=== PATIENT | female | born 1965 | race Caucasian/White ===

== ENCOUNTER → 2018-12-24 | Outpatient (CLI) | payer MEDICARE, MEDICAID ==
[~2018-12-24] MED LIST: HOLD METFORMIN - RECEIVED CONTRAST 20 ML VIAL IV SCH; IOHEXOL 350 MG/ML 150 ML (OMNIPAQUE 350) VIAL IV ONE
[2018-12-24 11:22] LABS: BUN/CREATININE RATIO 16; GFR ESTIMATED > 60
[2018-12-24 12:13] LABS: ABG BASE EXCESS 5.7 MMOL/L (-2.5-2.5); ABG OXYGEN SATURATION 97 % (94-100); ABG PCO2 52 MMHG (35-45); ABG PH 7.38 (7.37-7.43); ABG PO2 83 MMHG (79-93); ABG TCO2 32.5 MMOL/L (21.0-31.0)
--- NOTE | 2018-12-24 12:13 | Diagnostic Imaging Report ---
PROCEDURE: CT angiography of the chest with contrast. TECHNIQUE: Multiple contiguous axial images were obtained through the chest after uneventful bolus administration of intravenous contrast. 2D reconstructed CTA MIP acquisitions were also performed. Auto Exposure Controls were utilized during the CT exam to meet ALARA standards for radiation dose reduction. INDICATION: Cough and shortness of air with left-sided chest pain. COMPARISON: No prior studies are available for comparison. FINDINGS: Evaluation of the pulmonary arterial system is without evidence of thromboembolism. No definite filling defects are seen within the central or lobar branches. Thoracic aorta is normal caliber. No dissection is seen. There is no pericardial or pleural fluid identified. Left chest wall port is in place. No definite axillary, hilar or mediastinal lymphadenopathy is seen. No pulmonary infiltrates, nodules or masses are seen. Generalized low density throughout the liver is identified consistent with hepatic steatosis. IMPRESSION: 1. No evidence of pulmonary embolism or thoracic aortic dissection. 2. Hepatic steatosis. Dictated by: Dictated on workstation # [id number]
[2018-12-24 12:15] LABS: ALLENS TEST YES-POS; INSPIRED O2 2; PATIENT TEMP 96.4; VENTILATOR NO
== END ==
LOC: RT 10:38
PROVIDERS: ATTEND Nurse Practitioner Family
DX: R05 Cough (principal); R06.89 Other abnormalities of breathing; R06.00 Dyspnea, unspecified; J98.4 Other disorders of lung; R09.02 Hypoxemia; J30.9 Allergic rhinitis, unspecified; F41.9 Anxiety disorder, unspecified; G47.36 Sleep related hypoventilation in conditions classified elsewhere; G47.33 Obstructive sleep apnea (adult) (pediatric); M32.9 Systemic lupus erythematosus, unspecified
CPT/HCPCS: 36415; 36600; 71275; 82565; 82805; 84520

== ENCOUNTER → 2019-02-22 | Outpatient (CLI) | payer MEDICARE, MEDICAID ==
[~2019-02-22] MED LIST changes: -HOLD METFORMIN - RECEIVED CONTRAST 20 ML VIAL IV SCH; -IOHEXOL 350 MG/ML 150 ML (OMNIPAQUE 350) VIAL IV ONE; +RT-ALBUTEROL SULF 2.5 MG/3 ML PRE-MIX VIAL INH ONE
== END ==
LOC: RAD 14:14
PROVIDERS: ATTEND Nurse Practitioner Family
DX: J30.9 Allergic rhinitis, unspecified (principal); F41.9 Anxiety disorder, unspecified; J98.4 Other disorders of lung; G47.36 Sleep related hypoventilation in conditions classified elsewhere; M32.9 Systemic lupus erythematosus, unspecified; G47.33 Obstructive sleep apnea (adult) (pediatric)
CPT/HCPCS: 94060; 94726

== ENCOUNTER 2022-03-09 05:35 | Outpatient (CLI) | payer MEDICARE, MEDICAID ==
[~2022-03-09] VITALS: Ht 167.7 cm; Wt 97.7 kg
[2022-03-09 09:18] LABS: BILIRUBIN,URINE NEGATIVE (NEGATIVE); CLARITY,URINE CLEAR; COLOR,URINE YELLOW; GLUCOSE, URINE (UA) NEGATIVE (NEGATIVE); KETONES,URINE NEGATIVE (NEGATIVE); LEUKOCYTE ESTERASE ,URINE NEGATIVE (NEGATIVE); NITRITE,URINE NEGATIVE (NEGATIVE); PH,URINE 6.5 (5-9); PROTEIN,URINE NEGATIVE (NEGATIVE)
[2022-03-09 09:33] LABS: BACTERIA,URINE NEGATIVE /HPF; SQUAMOUS EPITHELIAL CELL,UR 0-2 /HPF; WBC,URINE RARE /HPF
[2022-03-09 09:37] VITALS: BP 127/79
[2022-03-09 09:53] LABS: BASOPHILS # (AUTO) 0.1 10^3/uL (0.0-0.1); BASOPHILS % (AUTO) 1 % (0-10); EOSINOPHILS # (AUTO) 0.4 10^3/uL (0.0-0.3); EOSINOPHILS % (AUTO) 3 % (0-10); HEMATOCRIT 42 % (35-52); HEMOGLOBIN 14.1 g/dL (11.5-16.0); LYMPHOCYTES % (AUTO) 37 % (12-44); MEAN CORPUSCULAR HEMOGLOBIN 30 pg (25-34); MEAN CORPUSCULAR HGB CONC 34 g/dL (32-36); MEAN CORPUSCULAR VOLUME 91 fL (80-99); MEAN PLATELET VOLUME 10.7 fL (9.0-12.2); MONOCYTES # (AUTO) 0.8 10^3/uL (0.0-1.0); MONOCYTES % (AUTO) 7 % (0-12); NEUTROPHILS # (AUTO) 5.5 10^3/uL (1.8-7.8); NEUTROPHILS % (AUTO) 52 % (42-75); PLATELET COUNT 303 10^3/uL (130-400); WHITE BLOOD COUNT 10.7 10^3/uL (4.3-11.0)
--- NOTE | 2022-03-09 10:02 | Diagnostic Imaging Report ---
Indication: Knee arthroplasty, preop evaluation. Findings: The lungs are clear. There is no failure, effusion or pneumothorax. Impression: Normal 2 view chest. Dictated by: Dictated on workstation # [id number]
[2022-03-09 10:14] LABS: POTASSIUM 4.4 MMOL/L (3.6-5.0)
[2022-03-09 10:16] LABS: CALCIUM 9.1 MG/DL (8.5-10.1)
[2022-03-09 10:17] LABS: PROTHROMBIN TIME PATIENT 13.7 SEC (12.2-14.7); TOTAL PROTEIN 7.4 GM/DL (6.4-8.2)
[2022-03-09 10:18] LABS: BILIRUBIN,TOTAL 0.5 MG/DL (0.1-1.0)
[2022-03-09 10:20] LABS: CREATININE SERUM 0.79 MG/DL (0.60-1.30)
[2022-03-09 10:23] LABS: ERYTHROCYTE SEDIMENTATION RATE 42 MM/HR (0-30)
[2022-03-09] MEDS ORDERED: NITR0.4T42 SL (10:59)
[2022-03-09] MEDS ORDERED: CHOL200074 PO (10:59)
[2022-03-09] MEDS ORDERED: BIOT10005 PO (10:59)
[2022-03-09] MEDS ORDERED: ESTR0.5T PO (10:59)
[2022-03-09] MEDS ORDERED: DOCU100T2 PO (10:59)
[2022-03-09] MEDS ORDERED: MONT-40 PO (10:59)
[2022-03-09] MEDS ORDERED: DULA0.75 SQ (10:59)
[2022-03-09] MEDS ORDERED: METF-865 PO (10:59)
[2022-03-09] MEDS ORDERED: DEXL60CA PO (10:59)
[2022-03-09] MEDS ORDERED: AMIT25TA9 PO (10:59)
[2022-03-09] MEDS ORDERED: MAGN400T50 PO (10:59)
[2022-03-09] MEDS ORDERED: ZOLP10TA PO (10:59)
[2022-03-09] MEDS ORDERED: CIME200T90 PO (10:59)
[2022-03-09] MEDS ORDERED: ATOR40TA70 PO (10:59)
[2022-03-09] MEDS ORDERED: CICL6.6S18 TP (10:59)
[2022-03-09] MEDS ORDERED: FERR-84 PO (10:59)
[2022-03-09] MEDS ORDERED: CARV12.53 PO (10:59)
[2022-03-09] MEDS ORDERED: DICL100G13 TP (10:59)
[2022-03-09] MEDS ORDERED: PREG25CA19 PO (10:59)
[2022-03-09] MEDS ORDERED: CETI10TA17 PO (10:59)
[2022-03-09] MEDS ORDERED: ONDA4TAB11 PO (10:59)
[2022-03-09] MEDS ORDERED: SPIR25TA PO (10:59)
[2022-03-09] MEDS ORDERED: MULT1CAP54 PO (10:59)
[2022-03-09] MEDS ORDERED: VILA40TA PO (10:59)
[2022-03-09] MEDS ORDERED: FENT1PAT9 TD (10:59)
[2022-03-09] MEDS ORDERED: LAMO100T5 PO (10:59)
[2022-03-09] MEDS ORDERED: ASPI-808 PO (10:59)
[2022-03-09] MEDS ORDERED: LORA-404 PO (10:59)
[2022-03-09] MEDS ORDERED: TIZA4CAP8 PO (10:59)
[2022-03-09] MEDS ORDERED: CALC600T91 PO (10:59)
[2022-03-09] MEDS ORDERED: LEVO150C4 PO (10:59)
[2022-03-09] MEDS ORDERED: MULT-1054 PO (10:59)
[2022-03-09] MEDS ORDERED: FLUT9.9S NS (10:59)
== END 2022-03-09 11:00 ==
LOC: PREOP 05:35
PROVIDERS: ATTEND Orthopaedic Surgery
DX: Z01.811 Encounter for preprocedural respiratory examination (principal)
CPT/HCPCS: 36415; 71046; 80053; 81000; 82308; 85025; 85610; 85652; 86850; 86900; 86901; 87081; 93005

== ENCOUNTER 2022-03-16 05:51 | Inpatient (IN) | payer MEDICARE, MEDICAID ==
--- NOTE | 2022-03-08 19:42 | HISTORY AND PHYSICAL ---
DATE OF SERVICE: DATE OF ADMISSION: 03/16/2022. This will be for inpatient admission on 03/16/2022 for right total knee arthroplasty. The patient will require regular inpatient admission due to pain management, need for physical therapy and comorbidities. HISTORY OF PRESENT ILLNESS: The patient is a 56-year-old female who previously underwent a right knee ACL reconstruction. She reports off and on pain for the last several years, but over the last few months, the pain has become significant to the point where she is having interference with activities of daily living with increased mechanical symptoms and associated swelling. She has undergone treatment with injections, anti-inflammatories and rest. As she has become more active, the pain is actually increased. Radiographs revealed severe tricompartmental osteoarthritis with the previously placed ACL screws. REVIEW OF SYSTEMS: No recent chest pain, shortness of breath, no dysuria. PAST MEDICAL HISTORY: Lupus, fibromyalgia, migraines, bipolar disorder, anxiety disorder, depression, COPD, diabetes, hyperlipidemia, hypertension, hypothyroidism, sleep apnea. PAST SURGICAL HISTORY: Cholecystectomy, abdominal hysterectomy with tubal ligation, bilateral knee arthroscopies, bottom tooth extraction, colonoscopy, EGD, ACL reconstruction bilaterally, left total knee arthroplasty and Baron-en-Y gastric bypass. FAMILY HISTORY: Noncontributory. PRIMARY CARE PROVIDER: Caron Cam. MEDICATIONS: Zolpidem, Viibryd, Ventolin, tizanidine, spironolactone, Lyrica, ondansetron, nitroglycerin, metformin, magnesium, loperamide, lorazepam, levothyroxine, fentanyl patches, estradiol, Dexilant, cimetidine, vitamin D, carvedilol, biotin, atorvastatin and aspirin. ALLERGIES: SULFA, CODEINE, AND PREDNISONE. SOCIAL HISTORY: The patient drinks alcohol occasionally. Denies tobacco use. PHYSICAL EXAMINATION: GENERAL: The patient is a well-developed, well-nourished, in no acute distress. HEENT: Normocephalic, atraumatic. Pupils are equal, round and reactive to light. Oropharynx is clear. NECK: Supple, no lymphadenopathy. LUNGS: Clear to auscultation bilaterally. HEART: Regular rate and rhythm. ABDOMEN: Soft, nontender, nondistended. EXTREMITIES: The right knee demonstrates well healed incisions. There is no erythema or warmth. She has moderate effusion. Range of motion 0/5/110. No varus valgus laxity. Trace anterior drawer, negative posterior drawer. IMPRESSION: Severe right knee osteoarthritis, unresponsive to conservative measures. PLAN: Right total knee arthroplasty. The risks, benefits, options, ramifications and recovery have been discussed at length with the patient. She understands and wishes to proceed. Job ID: [id number] DocumentID: [id number] Dictated Date: 02/28/2022 16:50:22 Contracting Analyst Date: 02/28/2022 17:16:14 Dictated By: RACHAEL GUADARRAMA MD
[2022-03-16] VITALS (10 sets, daily range): BP systolic 90–129; BP diastolic 45–70
[~2022-03-16] VITALS: Ht 167.7 cm; Wt 97.7 kg
[~2022-03-16 05:51] MED LIST changes: +AMIT25TA9 PO; +ASPI-808 PO; +ATOR40TA70 PO; +BIOT10005 PO; +CALC600T91 PO; +CARV12.53 PO; +CETI10TA17 PO; +CHOL200074 PO; +CICL6.6S18 TP; +CIME200T90 PO; +DEXL60CA PO; +DICL100G13 TP; +DOCU100T2 PO; +DULA0.75 SQ; +ESTR0.5T PO; +FENT1PAT9 TD; +FERR-84 PO; +FLUT9.9S NS; +LAMO100T5 PO; +LEVO150C4 PO; +LORA-404 PO; +MAGN400T50 PO; +METF-865 PO; +MONT-40 PO; +MULT-1054 PO; +MULT1CAP54 PO; +NITR0.4T42 SL; +ONDA4TAB11 PO; +PREG25CA19 PO; -RT-ALBUTEROL SULF 2.5 MG/3 ML PRE-MIX VIAL INH ONE; +SPIR25TA PO; +TIZA4CAP8 PO; +VILA40TA PO; +ZOLP10TA PO
[2022-03-16] MEDS: LACTATED RINGERS 1,000 ML IV PRN ×3 (06:45→10:19)
[2022-03-16] MEDS ORDERED: CEFUROXIME 1.5 GM/15 ML (ZINACEF) VIAL ONE (06:48)
[2022-03-16] MEDS ORDERED: CEFUROXIME INJECTION 1,500 MG in NS (IVPB) 50 ML IV ONE (07:00)
[2022-03-16] MEDS ORDERED: LIDOCAINE PF 2% 5 ML (XYLOCAINE) VIAL ONE (07:01)
[2022-03-16] MEDS ORDERED: proPOfol 200 MG/20 ML (DIPRIVAN) VIAL IV ONE (07:01)
[2022-03-16] MEDS ORDERED: fentaNYL INJ 100 MCG/2 ML AMP ONE (07:01)
[2022-03-16] MEDS ORDERED: ONDANSETRON 4 MG/2 ML (SDV) Z0FRAN ONE (07:01)
[2022-03-16] MEDS ORDERED: GLYCOPYRROLATE 0.2 MG/ML (ROBINUL) 2 ML VIAL ONE (07:01)
[2022-03-16] MEDS ORDERED: MIDAZOLAM 2 MG/2 ML (VERSED) VIAL ONE (07:02)
[2022-03-16] MEDS ORDERED: ROCURONIUM 50 MG/5 ML (ZEMURON) VIAL IV ONE ×2 (07:02→08:45)
[2022-03-16] MEDS ORDERED: NEOSTIGMINE (BLOXIVERZ ) 1 MG/1ML 10 ML VIAL ONE (07:02)
[2022-03-16] MEDS ORDERED: diphenhydrAMINE 50 MG/ML INJ (BENADRYL) IVP PRN (07:30)
[2022-03-16] MEDS ORDERED: ONDANSETRON 4 MG/2 ML (SDV) Z0FRAN IVP PRN ×2 (07:30→11:00)
--- NOTE | 2022-03-16 07:31 | Progress Note-Pre Operative ---
Pre-Operative Progress Note H&P Reviewed The H&P was reviewed, patient examined and no changes noted. Date Seen by Provider: Mar 16, 2022 Time Seen by Provider: 07:20 Date H&P Reviewed: Mar 16, 2022 Time H&P Reviewed: 07:11 Pre-Operative Diagnosis: right knee primary osteoarthritis RACHAEL GUADARRAMA MD Mar 16, 2022 07:31
--- NOTE | 2022-03-16 07:31 | Progress Note-Post Operative ---
Post-Operative Progess Note Surgeon (s)/Sailing Officer (s) Surgeon RACHAEL GUADARRAMA MD Sailing Officer: Jose Angel Mooney Pre-Operative Diagnosis right knee primary osteoarthritis Post-Operative Diagnosis right knee primary osteoarthritis Procedure & Operative Findings Date of Procedure 03/16/22 Procedure Performed/Findings right total knee arthroplasty Anesthesia Type GETA Estimated Blood Loss Estimated blood loss (mL): 400 ml Specimens/Packing Specimens Removed ACL screws Packing: none RACHAEL GUADARRAMA MD Mar 16, 2022 07:31
--- NOTE | 2022-03-16 07:34 | D/C HH Face to Face Order ---
D/C Face to Face Orders Reconcile Patient Problems Problems Reviewed?: Yes Instructions for Patient Via [facility], Patient Instructions/FollowUp: three weeks Physician to follow Patient: three weeks Discharge Diet for Home: Regular Diet Patient Data-Allergies,Ht & Wt Patient Allergies: Coded Allergies: Sulfa (Sulfonamide Antibiotics) (Verified Allergy, Severe, Anaphylaxis, 03/16/22) codeine (Verified Allergy, Severe, Hives, 03/16/22) prednisone (Verified Allergy, Severe, 03/16/22) Home Health Need/Face to Face Date of Face to Face: Mar 16, 2022 Clinical Findings: Muscle weakness, Pain with ambulation, Unsteady gait I have seen Pt ozhb-[id number]: Yes Discharged To: Home Diagnosis/Conditions: right total knee arthroplasty Patient is Homebound due to: Muscle weakness, Pain w/ambulation Homebound Status Due to the above stated illness, injury or surgical procedure (medical c ondition or diagnosis) and associated clinical findings, the patient is homebound because of his/her inability to leave home except with aid of a supportive device and/or person AND leaving the home requires a considerable and taxing effort or is medically contraindicated. Pt req the following assistanc: [facility] Nursing Orders Home Health Services Order: Physical Therapy-Evaluate & Treat DC right knee nicolle and apply steristrips 03/30/22 Home Health Infusion Therapy Line Start Date: Mar 16, 2022 Therapy Orders Therapy Orders: Physical Therapy, PT to assess for OT Therapy Specific Orders: Eval assistive deivces, Teach enviro modifications/safety, Gait training, Increase strength/endurance, Provider maintenance therapy, Restore ROM Certify Stmt I certify that this patient is under my care and that I, a nurse practitioner or a physician; a data assistant working with me, had a face to face encounter that - meets the physician face to face encounter requirements with this patient as dated. RACHAEL GUADARRAMA MD Mar 16, 2022 07:34
[2022-03-16] MEDS ORDERED: TRANEXAMIC ACID 100 MG/ML 10 ML INJECTION ONE (07:39)
[2022-03-16] MEDS ORDERED: PHENYLEPHRINE 100 MCG/ML 10 ML (ANESTHESIA) SYR ONE ×2 (07:41→09:16)
[2022-03-16] MEDS ORDERED: INTRA-ARTICULAR IU ONE ×5 (07:45)
[2022-03-16] MEDS ORDERED: HYDROmorphone 2 MG/ML VIAL (DILAUDID) ONE ×2 (08:23→11:13)
[2022-03-16] MEDS ORDERED: PHENYLEPHRINE INJ 10 MG/ML (FOR PYXIS KITS ONLY) ONE (09:29)
[2022-03-16] MEDS ORDERED: SEVOFLURANE (ULTANE) 15 ML INHAL SOLN ONE (10:41)
[2022-03-16] MEDS ORDERED: HYDROmorphone 2 MG/ML VIAL (DILAUDID) IV ONE (11:00)
[2022-03-16] MEDS ORDERED: morphine INJ 10 MG/ML 1ML (SYR OR VIAL) IVP ONE (11:00)
--- NOTE | 2022-03-16 11:10 | Progress Note ---
Standard Progress Note Progress Notes/Assess & Plan Date Seen by a Provider: Mar 16, 2022 Time Seen by a Provider: 11:08 Progress/Assessment & Plan post op check no complaints radiographs--HW well positioned without fracture RLE--intact DF and PF of toes and ankle. Intact sensation to light touch throughout 2 plus DP pulse with brisk cap refill s/p RTKA mobilize when able RACHAEL GUADARRAMA MD Mar 16, 2022 11:10
--- NOTE | 2022-03-16 11:20 | Diagnostic Imaging Report ---
Indication: Right knee surgery. Time of Exam: 10:50 AM 2 views right knee were obtained. There are postoperative changes total knee arthroplasty. Prosthetic elements are in good position without fracture loosening. There are overlying skin nicolle. IMPRESSION: Satisfactory postop right knee. Dictated by: Dictated on workstation # [id number]
[2022-03-16] MEDS: SENNA W/DOCUSATE (SENOKOT S) TABLET PO SCH ×2 (12:16→20:28)
[2022-03-16] MEDS: NS IV 1000 ML 1,000 ML IV SCH ×2 (12:16→15:11)
[2022-03-16] MEDS: morphine PCA 100 MG/100 ML BAG IV PRN ×2 (12:27→12:50)
[2022-03-16] MEDS: oxyCODONE/APAP 5/325MG (PERCOCET 5) TABLET PO PRN ×4 (13:00→22:53)
--- NOTE | 2022-03-16 13:56 | Physical Therapy Evaluation ---
PT Evaluation-General Medical Diagnosis Admission Date Mar 16, 2022 at 05:51 Medical Diagnosis: right TKA Onset Date: Mar 16, 2022 Therapy Diagnosis Therapy Diagnosis: impaired mobility, ROM Weight Bear Status Right Lower Extremity: Right Weight Bearing/Tolerated Referral Physician: Vinicio Reason for Referral: Evaluation/Treatment Medical History Additional Medical History PAST MEDICAL HISTORY: Lupus, fibromyalgia, migraines, bipolar disorder, anxiety disorder, depression, COPD, diabetes, hyperlipidemia, hypertension, hypothyroidism, sleep apnea. PAST SURGICAL HISTORY: Cholecystectomy, abdominal hysterectomy with tubal ligation, bilateral knee arthroscopies, bottom tooth extraction, colonoscopy, EGD, ACL reconstruction bilaterally, left total knee arthroplasty and Baron-en-Y gastric bypass. Reviewed History: Yes Social History Current Living Status: Other Family Entry Into Home: Stairs With Railing PT Steps Into Home: 4 Prior Prior Level of Function SCALE: Activities may be completed with or without assistive devices. 7-Bpjzmwfwmq-eyorrbl completes the activity by him/herself with no assistance from a helper. 5-Set-up or Clean-up Assistance-helper sets up or cleans up; patient completes activity. [place] assists only prior to or following the activity. 4-Supervision or Touching Assistance-helper provides verbal cues and/or touching/steadying and/or contact guard assistance as patient completes activity. Assistance may be provided throughout the activity or intermittently. 3-Partial/Moderate Assistance-helper does LESS THAN HALF the effort. [place] lifts, holds or supports trunk or limbs, but provides less than half the effort. 2-Substantial/Maximal Assistance-helper does MORE THAN HALF the effort. [place] lifts or holds trunk or limbs and provides more than half the effort. 0-Xrlmrvldq-iwecxq does ALL the effort. Patient does none of the effort to complete the activity. Or, the assistance of 2 or more helpers is required for the patient to complete the activity. If activity was not attempted, code reason: 7-Patient Refused. 9-Not Applicable-not attempted and the patient did not perform the activity before the current illness, exacerbation or injury. 10-Not Attempted due to Environmental Limitations-(lack of equipment, weather restraints, etc.). 88-Not Attempted due to Medical Conditions or Safety Concerns. Bed Mobility: 6 Transfers (B,C,W/C): 6 Gait: 6 Stairs: 6 Indoor Mobility (Ambulation): Independent Stairs: Independent PT Evaluation-Current Subjective Patient in bed pre tx, agrees to PT, has 4/10 pain in right knee. Pt/Family Goals to be independent at home Objective Patient Orientation: Person, Place, Situation Attachments: SCD's, IV ROM/Strength ROM Lower Extremities right knee flexion 75 degrees, extension +5 degrees Sensory Vision: Functional Hearing: Functional Sensation Right Lower Extremit: Impaired Sensation Left Lower Extremity: Impaired Transfers Roll Left to Right (QC): 6 Sit to Lying (QC): 3 Lying to Sitting/Side of Bed(Q: 6 Sit to Stand (QC): 4 Chair/Uts-gu-Mdrjf Xfer(QC): 4 Gait Does the Patient Walk?: Yes Mode of Locomotion: Walk Anticipated Mode of Locomotion: Walk Walk 10 feet (QC): 4 Distance: 20' Gait Assistive Device: FWW Comments/Gait Description slow, antalgic ambulation, slightly flexed right knee Balance Sitting Static: Normal Sitting Dynamic: Normal Standing Static: Good Standing Dynamic: Good Treatment total knee exercise protocol x10 (AP, QS, HS, SLR, SAQ) Assessment/Needs Patient in bed post tx with nurse call, phone, tray, all needs met. Patient has impaired mobility, strength, endurance, ROM. She gets a little light headed with ambulation. Rehab Potential: Fair PT Sample Driller Goals Penitentiary Goals PT Penitentiary Goals Time Frame: Mar 23, 2022 Roll Left & Right (QC): 6 Sit to Lying (QC): 6 Lying-Sitting on Side/Bed(QC): 6 Sit to Stand (QC): 6 Chair/Qsb-qs-Phmza Xfer(QC): 6 Walk 10 feet (QC): 6 Walk 50ft with 2 Turns (QC): 6 Walk 150 ft (QC): 6 PT Plan Problem List Problem List: Activity Tolerance, Functional Strength, Safety, Balance, Gait, Transfer, Bed Mobility, ROM Treatment/Plan Treatment Plan: Continue Plan of Care Treatment Plan: Bed Mobility, Education, Functional Activity Tete, Functional Strength, Gait, Safety, Therapeutic Exercise, Transfers Treatment Duration: Mar 23, 2022 Frequency: 11 times per week Estimated Hrs Per Day: .25 hour per day Patient and/or Family Agrees t: Yes Safety Risks/Education Patient Education: Gait Training, Transfer Techniques, Correct Positioning, Safety Issues Teaching Recipient: Patient Teaching Methods: Demonstration, Discussion Response to Teaching: Reinforcement Needed Discharge Recommendations Plan Patient will perform bed mobility and transfer training, balance and endurance training, functional strengthening, stair training, gait training, and education, to improve functional mobility and independence at home. Therapy Discharge Recommendati: Home & Family, Post Acute PT Time/GCodes Time In: 1312 Time Out: 1330 Total Billed Treatment Time: 18 Total Billed Treatment 1 visit JALEN 18' LEXI SALMERON PT Mar 16, 2022 13:56
--- NOTE | 2022-03-16 14:51 | OPERATIVE REPORT ---
DATE OF SERVICE: 03/16/2022 PREOPERATIVE DIAGNOSIS: Right knee primary osteoarthritis. POSTOPERATIVE DIAGNOSIS: Right knee primary osteoarthritis. PROCEDURE: Right total knee arthroplasty. SURGEON: Ismael Guadarrama MD WOOD VENEER TAPER: Jose Angel Mooney, who assisted throughout the procedure and closed the incision. ANESTHESIA: General endotracheal by Dr. Clayton. TOURNIQUET TIME: A 75 minutes initially then the tourniquet was deflated for approximately 25 minutes and then reinflated for approximately 60 minutes at 300 mmHg. ESTIMATED BLOOD LOSS: 400 mL. DRAINS: None. COMPLICATIONS: None. POSTOPERATIVE PLAN: Routine total knee arthroplasty protocol. The patient was transferred to recovery room awake and in stable condition. MATERIALS: Microport cemented size 3 femoral component with a 100 mm press-fit stem, 13 mm in diameter with a size 3 cemented tibial baseplate, 10 mm insert and cemented size 29 patellar button. STATEMENT OF MEDICAL NECESSITY: The patient is a 56-year-old female who in the remote past, underwent a right ACL reconstruction. She had progressive loss of function with pain in her knee. She has undergone treatment with injections without relief. Radiographs revealed severe tricompartmental osteoarthritis and due to functional impairment and failure to improve with conservative measures, the patient elected to proceed with surgical intervention. DESCRIPTION OF PROCEDURE: After risks and benefits of the procedure were discussed and questions were answered, an informed consent was signed and placed on chart, the operative site was confirmed in the preoperative holding area initialed by the surgeon. The patient was then transferred to the operating room and after adequate levels of general endotracheal anesthetic were obtained, a timeout was called, confirming the operative site. The right lower extremity was prepped and draped in the usual sterile fashion with the leg elevated and the knee flexed, tourniquet was inflated to 300 mmHg. The previous ACL incision was utilized and extended proximally. The underlying soft tissues were carefully dissected. Hemostasis was obtained with cautery. Medial parapatellar arthrotomy was performed leaving 1 cm cuff on the patella for later reattachment. A portion of the fat pad was resected. Subperiosteal release was carefully performed on the proximal medial tibia being careful to stay on the bony surface. The ACL was resected. The femoral screw could not be visualized as it was overgrown. The intramedullary guide was passed into the femur, but the ACL screw kicked the reamer anteriorly which caused an approximately 2 cm cortical defect anteriorly on the metaphysis. This was redirected and the distal cutting block was placed. Distal cut was made, the femur sized to a size 3 and 3 cutting block was placed parallel to the epicondylar axis and cuts were made from posterior to the anterior. The tibia was then prepared. The intramedullary guide was passed into the tibial canal. The cutting block was placed. The drop corrie transected the intermalleolar axis, and the cut was made. The three baseplate was placed and pinned into position. The drop corrie again transected the intermalleolar axis. This was felt to be in excellent position. This was prepared with the drill and keel punch. The patella was then prepared by resecting 10 mm off the undersurface. The peg guide was placed, and the peg holes were drilled. The femur was trialed and found to be flexed; therefore, it was recut, and the trial provided excellent coverage of the knee was taken through range of motion with 10 mm insert. Full extension was easily obtained 120 degrees of flexion with gravity was easily obtained. The knee was stable anterior and posteriorly and medially, laterally in flexion and extension. The patella tracked well. While awaiting the stems to arrive, the tourniquet was deflated and the periarticular block was placed. The joint was copiously irrigated with pulse lavage. After the tourniquet had been placed for 25 minutes, the tourniquet was reinflated and the femoral trial was placed and then the femoral canal was sequentially reamed to a depth of 175 mm for a press-fit 13 mm stem. This was then prepared, the joint was further irrigated with pulse lavage. Bone ends were irrigated and dried and the tibial baseplate was cemented into position. Superior surface was irrigated and dried and the polyethylene insert was placed. The distal femur was irrigated and dried and the femoral prosthesis was cemented into position. The knee was brought out in full extension until cement had cured. Excessive cement was removed. The undersurface of the patella was irrigated and dried. The patellar button was cemented into position. This was held in position until the cement had cured. Viewing through the cortical defect, it was ensured that with reaming and with the stem prosthesis was placed this past an adequate distance and, and adequate distance, which was at least two and half cortices proximal to the defect. This was well seated. Once the cement had cured, the knee was taken through range of motion. Full extension was easily obtained 120 degrees of flexion with gravity was easily obtained. Patella tracked well. There was no anterior/posterior or medial/lateral laxity in flexion or extension. The joint was further irrigated with pulse lavage. The arthrotomy was closed with #2 Tevdek in jqnblu-jw-orrso interrupted fashion. The knee was flexed. The repair was stable, and the patella tracked well. Subcutaneous tissues were irrigated with pulse lavage. A total of 12 liters was used throughout the procedure, 0 Vicryl was used to deep subcutaneous layer, 2-0 Vicryl, subcutaneous layer, nicolle used on the skin. A soft dressing was applied. The tourniquet was deflated. The patient was transferred to recovery room awake and in stable condition. Job ID: [id number] DocumentID: [id number] Dictated Date: 03/16/2022 10:49:14 Dry Cleaning Checker Date: 03/16/2022 14:50:31 Dictated By: ISMAEL GUADARRAMA MD
[2022-03-16] MEDS: CEFUROXIME INJECTION 750 MG in NS (IVPB) 50 ML IV SCH ×2 (15:11→22:53)
[2022-03-16] MEDS ORDERED: LORazepam 0.5 MG (ATIVAN) TABLET PO PRN (15:30)
[2022-03-16] MEDS ORDERED: CHOL500050 PO (16:26)
[2022-03-16] MEDS ORDERED: CIME-48 PO (16:26)
[2022-03-16] MEDS ORDERED: CALC1CAP5 PO (16:26)
[2022-03-16] MEDS ORDERED: TIZA-186 PO (16:26)
[2022-03-16] MEDS: MAGNESIUM OXIDE (MAG-OX)400 MG TAB PO SCH ×2 (16:37→20:25)
[2022-03-16] MEDS ORDERED: NON-FORMULARY MEDICATION 1 EA EA (Magnesium Oxide 400 MG) PO SCH (17:00)
--- NOTE | 2022-03-16 17:30 | Consultation - Hospitalist ---
HPI History of Present Illness: HPI/Chief Complaint Ange Anderson is a 56 year old female with PMH HTN, HLD, GERD, T2DM, hypothyroidism,, bipolar disorder, COPD, YOLANDA, lupus, fibromyalgia, migraines, obesity, osteoarthritis, who presented for a planned right total knee arthroplasty. The hospitalist service has been consulted for medical comanagement. She was seen postoperatively. She is doing well. She has worked with therapy. She is having some pain but it is well controlled. She denies nausea and vomiting. She denies fevers and chills. She is not having any chest pain or shortness of breath. Source: patient Exam Limitations: no limitations Date Seen 03/16/22 Attending Physician Gamaliel Dominguez DO PCP Admitting Physician: Ismael Horne MD Attending Physician: Ismael Horne MD Referring Physician Date of Admission Mar 16, 2022 at 05:51 Home Medications & Allergies Home Medications Reviewed patient Home Medication Reconciliation performed by pharmacy medication reconciliations valve technician and/or nursing. Patients Allergies have been reviewed. Allergies Allergies Coded Allergies Sulfa (Sulfonamide Antibiotics) (Verified Allergy, Severe, Anaphylaxis, 03/16/22) codeine (Verified Allergy, Severe, Hives, 03/16/22) prednisone (Verified Allergy, Severe, 03/16/22) Past Orekoyu-Oufpup-Fstcco Hx Patient Social History Tobacco Use?: No Smoking Status: Never a Smoker Use of E-Cig and/or Vaping dev: No Substance use?: No Alcohol Use?: Yes Alcohol Frequency: Rarely Pt feels they are or have been: No Seasonal Allergies Seasonal Allergies: Yes Current Status status: No Advance Directives: No Advance Directive Location: Home Communicates: Verbally Primary Language: Angolan Preferred Spoken Language: Angolan Is interpretation needed?: No Sensory deficits: Vision impairment Implanted or Applied Medical D: None Past Medical History Surgeries: Gallbladder, Hysterectomy, Tubal Ligation COPD Currently Using CPAP: No Currently Using BIPAP: No Chronic Edema/Swelling, High Cholesterol, Hypertension 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: Hysterectomy Arthritis, Fibromyalgia Hypothyroidsim, Diabetes, Non-Insulin dep, Lupus Sleep Difficulties, Anxiety, Depression Blood Disorders: No Family Medical History No Pertinent Family Hx Review of Systems Constitutional: no symptoms reported EENTM: no symptoms reported Respiratory: no symptoms reported Cardiovascular: no symptoms reported Gastrointestinal: no symptoms reported Physical Exam Physical Exam Vital Signs Vital Signs - First Documented 03/16/22 06:20 Temp 36.8 Pulse 89 Resp 18 B/P (MAP) 110/59 (76) Pulse Ox 95 O2 Delivery Room Air Capillary Refill : Less Than 3 Seconds Height, Weight, BMI Height: '" Weight: lbs. oz. kg; 34.73 BMI Method: General Appearance: No Apparent Distress, Obese Neck: Normal Inspection, Supple Respiratory: Lungs Clear, No Respiratory Distress Cardiovascular: Regular Rate, Rhythm, No Murmur Gastrointestinal: Normal Bowel Sounds, Soft Extremity: Normal Inspection, No Pedal Edema Neurologic/Psychiatric: Alert, No Motor/Sensory Deficits Skin: Normal Color, Warm/Dry Results Results/Procedures Labs Patient resulted labs reviewed. Imaging: Reviewed Imaging Report Assessment/Plan Assessment and Plan Assess & Plan/Chief Complaint Right total knee arthroplasty Right knee osteoarthritis [place] primary Pain regimen, FUEL HANDLER Bowel regimen Incentive spirometry PT/OT T2DM Sliding scale insulin HTN HLD GERD Hypothyroidism Bipolar COPD YOLANDA Lupus Fibromyalgia Migraines Continue home meds DVT prophylaxis: Lovenox Diagnosis/Problems Diagnosis/Problems (1) S/P total knee arthroplasty Status: Acute Qualifiers: Laterality: right Qualified Codes: Z96.651 - Presence of right artificial knee joint (2) Osteoarthritis of right knee Status: Acute Qualifiers: Osteoarthritis type: primary Qualified Codes: M17.11 - Unilateral primary osteoarthritis, right knee (3) T2DM (type 2 diabetes mellitus) Status: Chronic (4) Obesity Status: Chronic KRISTINE DICKEY MD Mar 16, 2022 17:30
[2022-03-16] MEDS: DOCUSATE SODIUM 100 MG (COLACE) CAP PO SCH (20:28)
[2022-03-16] MEDS: LORATADINE (CLARITIN) 10 MG TAB PO SCH (20:28)
[2022-03-16] MEDS: PREGABALIN 25 MG (LYRICA) CAPSULE PO SCH (20:29)
[2022-03-16] MEDS ORDERED: AMITRIPTYLINE 25 MG (ELAVIL) TAB PO SCH (21:00)
[2022-03-16] MEDS ORDERED: CETIRIZINE HCL (ZYRTEC) 10 MG TAB PO SCH (21:00)
[2022-03-16] MEDS ORDERED: NON-FORMULARY MEDICATION 1 EA EA (Docusate Sodium 100 MG) PO SCH (21:00)
[2022-03-16] MEDS: inSUlin ASPART (NovoLOG) 1 UNIT/0.01 ML (CHARGE PER UNIT) SC SCH (21:00)
[2022-03-16] MEDS ORDERED: NON-FORMULARY MEDICATION 1 EA EA (Zolpidem Tartrate (Ambien) 10 MG) PO SCH (21:00)
[2022-03-16] MEDS ORDERED: ZOLPIDEM 5 MG (AMBIEN) TAB PO SCH (21:00)
[2022-03-16] MEDS ORDERED: ACETAMINOPHEN 325 MG TABLET PO PRN (22:30)
[2022-03-16] MEDS ORDERED: ACETAMINOPHEN 325 MG TABLET ONE (22:50)
[2022-03-17] VITALS (8 sets, daily range): BP systolic 74–135; BP diastolic 43–69
[2022-03-17] MEDS ORDERED: NS IV 500 ML 500 ML IV PRN (01:00)
[2022-03-17] MEDS: NS IV 1000 ML 1,000 ML IV SCH (01:08)
[2022-03-17 06:21] LABS: HEMOGLOBIN 10.8 g/dL (11.5-16.0)
[2022-03-17] MEDS: inSUlin ASPART (NovoLOG) 1 UNIT/0.01 ML (CHARGE PER UNIT) SC SCH ×4 (06:52→20:38)
[2022-03-17] MEDS: LEVOTHYROXINE 150 MCG (LEVOTHROID) TAB PO SCH (06:53)
[2022-03-17] MEDS: MULTIVIT W/MINERALS TAB (THERAGRAN M) PO SCH (06:54)
[2022-03-17] MEDS: oxyCODONE/APAP 5/325MG (PERCOCET 5) TABLET PO PRN ×6 (06:58→23:22)
--- NOTE | 2022-03-17 07:52 | Progress Note ---
Standard Progress Note Progress Notes/Assess & Plan Date Seen by a Provider: Mar 17, 2022 Time Seen by a Provider: 07:52 Progress/Assessment & Plan post op check no complaints radiographs--HW well positioned without fracture RLE--intact DF and PF of toes and ankle. Intact sensation to light touch throughout 2 plus DP pulse with brisk cap refill s/p RTKA mobilize when able Final Diagnosis no complaints Vital Signs Date Time Temp Pulse Resp B/P (MAP) Pulse Ox O2 Delivery O2 Flow Rate FiO2 03/17/22 06:15 18 03/17/22 04:24 94 Nasal Cannula 3.00 03/17/22 03:50 36.5 97 18 114/52 (72) 93 Nasal Cannula 3.00 03/17/22 02:09 35.9 97 20 96/51 (66) 96 Nasal Cannula 3.00 03/17/22 00:44 111 74/43 (53) 95 Nasal Cannula 3.00 03/17/22 00:41 36.8 03/17/22 00:28 36.8 123 20 76/43 (54) 93 Nasal Cannula 3.00 03/16/22 22:54 39.4 03/16/22 20:20 20 03/16/22 20:00 Room Air 03/16/22 19:47 37.7 95 24 114/62 (79) 95 Room Air 03/16/22 17:20 114/70 (85) 03/16/22 15:52 36.6 81 22 90/64 (73) 94 Nasal Cannula 0.50 03/16/22 11:50 Room Air 03/16/22 11:40 37.5 16 107/62 (77) 98 OxyMask 03/16/22 11:35 OxyMask 3.00 03/16/22 11:30 12 100/60 (73) 99 OxyMask 3.00 03/16/22 11:20 OxyMask 8 03/16/22 11:20 15 91/52 (65) 100 OxyMask 5.00 03/16/22 11:10 12 107/45 (65) 100 OxyMask 8 03/16/22 11:05 OxyMask 8 03/16/22 11:00 14 106/65 (79) 100 OxyMask 8 03/16/22 10:52 36.1 16 129/61 (83) 97 OxyMask 8 03/16/22 10:52 OxyMask 8 I & O 03/17/22 06:59 Intake Total 4282 ml Output Total 1800 ml Balance 2482 ml Laboratory Tests Test 03/16/22 15:56 03/16/22 20:21 03/17/22 05:40 Range/Units Glucometer 85 79 70-110 MG/DL Hemoglobin 10.8 L 11.5-16.0 g/dL Hematocrit 34 L 35-52 % RLE--NVI distally dressing intact no calf tenderness s/p RTKA PT/OT RACHAEL GUADARRAMA MD Mar 17, 2022 07:52
[2022-03-17 08:22] LABS: BASOPHILS % (AUTO) 0 % (0-10); EOSINOPHILS % (AUTO) 0 % (0-10); HEMATOCRIT 34 % (35-52); HEMOGLOBIN 10.7 g/dL (11.5-16.0); LYMPHOCYTES # (AUTO) 2.1 10^3/uL (1.0-4.0); LYMPHOCYTES % (AUTO) 28 % (12-44); MEAN CORPUSCULAR HEMOGLOBIN 30 pg (25-34); MEAN CORPUSCULAR HGB CONC 31 g/dL (32-36); MEAN CORPUSCULAR VOLUME 96 fL (80-99); MEAN PLATELET VOLUME 11.3 fL (9.0-12.2); MONOCYTES # (AUTO) 0.7 10^3/uL (0.0-1.0); MONOCYTES % (AUTO) 10 % (0-12); NEUTROPHILS # (AUTO) 4.5 10^3/uL (1.8-7.8); NEUTROPHILS % (AUTO) 61 % (42-75); PLATELET COUNT 217 10^3/uL (130-400); WHITE BLOOD COUNT 7.4 10^3/uL (4.3-11.0)
[2022-03-17 08:26] LABS: CALCIUM 7.7 MG/DL (8.5-10.1); CREATININE SERUM 0.9 MG/DL (0.60-1.30); POTASSIUM 4.5 MMOL/L (3.6-5.0)
--- NOTE | 2022-03-17 08:56 | Occupational Therapy Eval ---
OT Evaluation-General/PLF Medical Diagnosis Admission Date Mar 16, 2022 at 05:51 Medical Diagnosis: right TKA Onset Date: Mar 16, 2022 Therapy Diagnosis Therapy Diagnosis: decreased ADL status and weakness Referral Physician: Vinicio Referral Reason: Evaluation/Treatment Medical History Additional Medical History lupus, fibromyalgia, migraines, bipolar, anxiety, depression, COPD, DM, HLD, HTN, hyperthyroidism, and sleep apnea. Current History S/p elective R TKA on 03/16/2022. Social History Current Living Status: Other Family Entry Into Home: Stairs With Railing Steps Into Home: 4 ADL-Prior Level of Function SCALE: Activities may be completed with or without assistive devices. 0-Oeiwazfzkz-tvhvezo completes the activity by him/herself with no assistance from a helper. 5-Set-up or Clean-up Assistance-helper sets up or cleans up; patient completes activity. [place] assists only prior to or following the activity. 4-Supervision or Touching Assistance-helper provides verbal cues and/or touching/steadying and/or contact guard assistance as patient completes activity. Assistance may be provided throughout the activity or intermittently. 3-Partial/Moderate Assistance-helper does LESS THAN HALF the effort. [place] lifts, holds or supports trunk or limbs, but provides less than half the effort. 2-Substantial/Maximal Assistance-helper does MORE THAN HALF the effort. [place] lifts or holds trunk or limbs and provides more than half the effort. 7-Ckqfugcpj-liaaou does ALL the effort. Patient does none of the effort to complete the activity. Or, the assistance of 2 or more helpers is required for the patient to complete the activity. If activity was not attempted, code reason: 7-Patient Refused. 9-Not Applicable-not attempted and the patient did not perform the activity before the current illness, exacerbation or injury. 10-Not Attempted due to Environmental Limitations-(lack of equipment, weather restraints, etc.). 88-Not Attempted due to Medical Conditions or Safety Concerns. ADL PLOF Comments Pt reports being IND with ADLs prior to surgery on 03/16. She has undergone four other surgeries on her knees, so she is familiar with the rehabilitation process. 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 She does not anticipate any difficulties with self-care tasks upon discharge, but she said her family (who she lives with) can assist as needed. Self Care: Independent Functional Cognition: Independent DME/Equipment: Bath Bench, Shower (walk in), Tub/Shower OT Current Status Subjective Pt seated in recliner upon OT arrival, agreeable to eval/tx. Pt stated that she does not anticipate any concerns with self-care tasks upon d/c, but she requested to speak with SW about obtaining a FWW. OT notified nursing staff of pt's request. Mental Status/Objective Patient Orientation: Person, Place, Situation Attachments: IV, Oxygen (3L via NC), Polar Pack Current Upper Extremity ROM WFL Upper Extremity Coordination Not formally tested, but no deficits observed while donning/doffing gripper socks Upper Extremity Strength grossly 4/5 ADL-Treatment Eating (QC): 6 On/Off Footwear (QC): 6 (gripper socks) Other Treatments Pt remained in recliner throughout tx session. She provided information about her PLOF and living situation. She demonstrated IND in doffing/donning gripper socks on bilateral feet and reports she was able to don underwear without too much difficulty. Pt educated on the purpose and benefit of skilled OT services, but she politely declined as she does not anticipate any issues with self-care tasks upon d/c. OT educated pt about the importance of BUE exercises to maintain strength and endurance during hospital stay, demonstrating several BUE exercises for pt to do during day. Pt verbalized understanding. Post tx, pt left in recliner with polar pack on R knee, call light within reach and all needs met. Education OT Patient Education: Correct positioning, Energy conservation, Exercise program, Modified ADL techniques, Progress toward Goal/Update tx plan, Purpose of tx/functional activities, Rehab process, Use of adapted equipment, W/C management Teaching Recipient: Patient Teaching Methods: Demonstration, Discussion Response to Teaching: Verbalize Understanding OT [place] Can Worker Goals [facility] Goals 1=Demonstrate adherence to instructed precautions during ADL tasks. 2=Patient will verbalize/demonstrate understanding of assistive devices/modifications for ADL. 3=Patient will improve strength/tolerance for activity to enable patient to perform ADL's. OT Education/Plan Problem List/Assessment Assessment: No Skilled OT Needs ID'd Pt demonstrated IND in donning/doffing gripper socks. She was educated on the purpose and benefit of skilled OT but politely declined as she does not anticipate any issues with ADLs upon d/c. Pt told to have nursing staff notify OT if any concerns/questions about self-care arise. D/c from OT at this time per pt request. Discharge Recommendations Plan/Recommendations: Discharge/Goals Met Treatment Plan/Plan of Care Patient would benefit from OT for education, treatment and training to promote independence in ADL's, mobility, safety and/or upper extremity function for ADL's. Plan of Care: ADL Retraining, UE Funct Exercise/Act Treatment Duration: Mar 17, 2022 Frequency: 1 time per week (eval only) Estimated Hrs Per Day: .25 hour per day Rehab Potential: Fair Time/GCodes Start Time: 08:30 Stop Time: 08:38 Total Time Billed (hr/min): 8 Billed Treatment Time 1, SUDHEER JOSE OT Mar 17, 2022 08:56
[2022-03-17] MEDS ORDERED: VILAZODONE 40 MG (VIIBRYD) TABLET (NON-FORMULARY) PO SCH (09:00)
[2022-03-17] MEDS ORDERED: NON-FORMULARY MEDICATION 1 EA EA (Fluticasone Propionate (Flonase Allergy Relief) 1 SPRAY) NS SCH (09:00)
[2022-03-17] MEDS ORDERED: NON-FORMULARY MEDICATION 1 EA EA (Estradiol (Estradiol Tablet) 0.5 MG) PO SCH (09:00)
[2022-03-17] MEDS ORDERED: NON-FORMULARY MEDICATION 1 EA EA (Levothyroxine Sodium (Levothyroxine) 150 MCG) PO SCH (09:00)
--- NOTE | 2022-03-17 09:14 | Anesthesia-General Post-Op ---
General Patient Condition Mental Status/LOC: Same as Preop Cardiovascular: Satisfactory Nausea/Vomiting: Absent Respiratory: Satisfactory Pain: Controlled Complications: Absent Post Op Complications Complications None Follow Up Care/Instructions Patient Instructions None needed. Anesthesia/Patient Condition Patient Condition Patient is doing well, no complaints, stable vital signs, no apparent adverse anesthesia problems. No complications reported per nursing. FARSHAD ORTIZ CRNA Mar 17, 2022 09:14
[2022-03-17] MEDS: MONTELUKAST 10 MG (SINGULAIR) TAB PO SCH (09:33)
[2022-03-17] MEDS: PREGABALIN 25 MG (LYRICA) CAPSULE PO SCH ×3 (09:33→20:29)
[2022-03-17] MEDS: ESTRADIOL 1 MG TAB (ESTRACE) PO SCH (09:33)
--- NOTE | 2022-03-17 09:33 | Physical Therapy Daily Note ---
PT Daily Note-Current Subjective Patient agrees to PT. Patient requests CPM with nursing placing orders. Pain Numeric Pain Scale: 10-Worst Possible Pain Location: Right Location Body Site: Knee Pain Description: Acute Comment: with [employer]OUNTS RECRUITER and pain medication issued Mental Status Patient Orientation: Normal For Age Attachments: IV Transfers SCALE: Activities may be completed with or without assistive devices. 8-Rxorazqfnu-jfmabvs completes the activity by him/herself with no assistance from a helper. 5-Set-up or Clean-up Assistance-helper sets up or cleans up; patient completes activity. [place] assists only prior to or following the activity. 4-Supervision or Touching Assistance-helper provides verbal cues and/or touching/steadying and/or contact guard assistance as patient completes activity. Assistance may be provided throughout the activity or intermittently. 3-Partial/Moderate Assistance-helper does LESS THAN HALF the effort. [place] lifts, holds or supports trunk or limbs, but provides less than half the effort. 2-Substantial/Maximal Assistance-helper does MORE THAN HALF the effort. [place] lifts or holds trunk or limbs and provides more than half the effort. 2-Dbogbfdis-nsxdct does ALL the effort. Patient does none of the effort to complete the activity. Or, the assistance of 2 or more helpers is required for the patient to complete the activity. If activity was not attempted, code reason: 7-Patient Refused. 9-Not Applicable-not attempted and the patient did not perform the activity before the current illness, exacerbation or injury. 10-Not Attempted due to Environmental Limitations-(lack of equipment, weather restraints, etc.). 88-Not Attempted due to Medical Conditions or Safety Concerns. Lying to Sitting/Side of Bed(Q: 4 Sit to Stand (QC): 4 Chair/Gmu-bz-Qpfki Xfer(QC): 4 Weight Bearing Right Lower Extremity: Right Weight Bearing/Tolerated Gait Training Distance: 100' Walk 10 feet (QC): 4 Walk 50 ft with 2 Turns(QC): 4 Gait Assistive Device: FWW slow, antalgic, step to gait sequence with noted right flexed knee stance with TTWB. VC's for foot flat or heel/toe gait, however, patient continued to place minimal weight through right LE. Exercises Supine Ex: Ankle pumps, Quad Set, Heel Slides, Straight leg raise Supine Reps: 15 Seated Therapy Exercises: Long arc quads Seated Reps: 15 Assessment Patient educated on importance of active muscle movement to increase ROM and decrease "stiffness". Patient up in recliner with needs met. PT to place CPM on right LE this p.m. PT Long-Term Goals Long-Term Goals PT Service Manager Goals Time Frame: Mar 23, 2022 Roll Left & Right (QC): 6 Sit to Lying (QC): 6 Lying-Sitting on Side/Bed(QC): 6 Sit to Stand (QC): 6 Chair/Sjq-vj-Zeaca Xfer(QC): 6 Walk 10 feet (QC): 6 Walk 50ft with 2 Turns (QC): 6 Walk 150 ft (QC): 6 PT Plan Treatment/Plan Treatment Plan: Continue Plan of Care Treatment Plan: Bed Mobility, Education, Functional Activity Tete, Functional Strength, Gait, Safety, Therapeutic Exercise, Transfers Treatment Duration: Mar 23, 2022 Frequency: 11 times per week Estimated Hrs Per Day: .25 hour per day Patient and/or Family Agrees t: Yes Time/GCodes Time In: 757 Time Out: 820 Total Billed Treatment Time: 23 Total Billed Treatment 1 visit EX 14 min GT 9 min MORIS CHIN PT Mar 17, 2022 09:33
[2022-03-17] MEDS: SPIRONOLACTONE 25 MG (ALDACTONE) TAB PO SCH (09:34)
[2022-03-17] MEDS: SENNA W/DOCUSATE (SENOKOT S) TABLET PO SCH ×2 (09:34→20:31)
[2022-03-17] MEDS: DOCUSATE SODIUM 100 MG (COLACE) CAP PO SCH ×2 (09:34→20:29)
[2022-03-17] MEDS: ASPIRIN E.C. 81 MG (ECOTRIN) TAB PO SCH (09:34)
[2022-03-17] MEDS: MAGNESIUM OXIDE (MAG-OX)400 MG TAB PO SCH ×4 (09:34→20:31)
[2022-03-17] MEDS: ENOXAPARIN INJECTION 30 MG/0.3 ML SYR SC SCH ×2 (09:34→20:28)
[2022-03-17] MEDS: FLUTICASONE NASAL SPRAY (FLONASE) 16 GM BTL NS SCH (09:35)
--- NOTE | 2022-03-17 10:55 | Physical Therapy Progress Note ---
Therapy Progress Note CPM and Pads placed on patient at [phone] (0-70 degrees). 1 visit CPM/Pads 9 min MORIS CHIN PT Mar 17, 2022 10:55
--- NOTE | 2022-03-17 13:39 | Physical Therapy Daily Note ---
PT Daily Note-Current Subjective Patient reports she is taking her pain medication every 4 hours. PT educated patient on how physician ordered it every 2 hours to help with recovery and to address rehab potential. Pain Numeric Pain Scale: 10-Worst Possible Pain Location: Right Location Body Site: Knee Pain Description: Acute Mental Status Patient Orientation: Normal For Age Attachments: IV Transfers SCALE: Activities may be completed with or without assistive devices. 0-Oxrjostqmg-cquisys completes the activity by him/herself with no assistance from a helper. 5-Set-up or Clean-up Assistance-helper sets up or cleans up; patient completes activity. [place] assists only prior to or following the activity. 4-Supervision or Touching Assistance-helper provides verbal cues and/or touching/steadying and/or contact guard assistance as patient completes activity. Assistance may be provided throughout the activity or intermittently. 3-Partial/Moderate Assistance-helper does LESS THAN HALF the effort. [place] lifts, holds or supports trunk or limbs, but provides less than half the effort. 2-Substantial/Maximal Assistance-helper does MORE THAN HALF the effort. [place] lifts or holds trunk or limbs and provides more than half the effort. 9-Ocgirnkan-scktym does ALL the effort. Patient does none of the effort to complete the activity. Or, the assistance of 2 or more helpers is required for the patient to complete the activity. If activity was not attempted, code reason: 7-Patient Refused. 9-Not Applicable-not attempted and the patient did not perform the activity before the current illness, exacerbation or injury. 10-Not Attempted due to Environmental Limitations-(lack of equipment, weather restraints, etc.). 88-Not Attempted due to Medical Conditions or Safety Concerns. Lying to Sitting/Side of Bed(Q: 4 Sit to Stand (QC): 4 Toilet Transfer (QC): 4 Weight Bearing Right Lower Extremity: Right Weight Bearing/Tolerated Gait Training Distance: 50' Walk 10 feet (QC): 4 Walk 50 ft with 2 Turns(QC): 4 Gait Assistive Device: FWW slow, antalgic Exercises Supine Ex: Ankle pumps, Quad Set, Heel Slides, Straight leg raise Supine Reps: 15 Assessment Patient able to toilet self. Improving slowly. Appears to self limit due to pain. Increase activity as tolerated by patient. PT Detention Goals Detention Goals PT Detention Goals Time Frame: Mar 23, 2022 Roll Left & Right (QC): 6 Sit to Lying (QC): 6 Lying-Sitting on Side/Bed(QC): 6 Sit to Stand (QC): 6 Chair/Oet-uz-Sgsdm Xfer(QC): 6 Walk 10 feet (QC): 6 Walk 50ft with 2 Turns (QC): 6 Walk 150 ft (QC): 6 PT Plan Treatment/Plan Treatment Plan: Continue Plan of Care Treatment Plan: Bed Mobility, Education, Functional Activity Tete, Functional Strength, Gait, Safety, Therapeutic Exercise, Transfers Treatment Duration: Mar 23, 2022 Frequency: 11 times per week Estimated Hrs Per Day: .25 hour per day Patient and/or Family Agrees t: Yes Time/GCodes Time In: 1305 Time Out: 1331 Total Billed Treatment Time: 26 Total Billed Treatment 1 visit EX 15 min GT 11 min MORIS CHIN PT Mar 17, 2022 13:39
--- NOTE | 2022-03-17 17:49 | Progress Note - Hospitalist ---
Subjective HPI/CC On Admission Date Seen by Provider: Mar 17, 2022 Time Seen by Provider: 10:40 Ange Anderson is a 56 year old female with PMH HTN, HLD, GERD, T2DM, hypothyroidism,, bipolar disorder, COPD, YOLANDA, lupus, fibromyalgia, migraines, obesity, osteoarthritis, who presented for a planned right total knee arthroplasty. The hospitalist service has been consulted for medical comanagement. She was seen postoperatively. She is doing well. She has worked with therapy. She is having some pain but it is well controlled. She denies nausea and vomiting. She denies fevers and chills. She is not having any chest pain or shortness of breath. Subjective/Events-last exam She did not sleep well last night. She had some fever and chills overnight. She is not having any shortness of breath or cough. She denies any other symptoms. She has been up and working with therapy. Objective Exam Vital Signs Vital Signs Date Time Temp Pulse Resp B/P (MAP) Pulse Ox O2 Delivery O2 Flow Rate FiO2 03/17/22 15:35 37.0 91 22 111/69 (83) 94 Nasal Cannula 1.00 Capillary Refill : Less Than 3 Seconds General Appearance: No Apparent Distress, Obese Respiratory: Lungs Clear, Normal Breath Sounds, No Respiratory Distress Cardiovascular: Regular Rate, Rhythm, No Murmur Gastrointestinal: Normal Bowel Sounds, Non Tender, Soft Extremity: Non Tender, No Pedal Edema, Other (right leg ) Neurologic/Psychiatric: Alert, Normal Mood/Affect Results/Procedures Lab Laboratory Tests 03/17/22 05:40 03/17/22 05:45 Patient resulted labs reviewed. Imaging: Reviewed Imaging Report Assessment/Plan Assessment and Plan Assess & Plan/Chief Complaint Right total knee arthroplasty Right knee osteoarthritis [place] primary Pain regimen, [employer] Bowel regimen Incentive spirometry PT/OT Fever WBC normal Tachycardic and hypotensive overnight Responded well to fluid resuscitation No evidence of infection Continue to monitor closely T2DM Sliding scale insulin HTN HLD GERD Hypothyroidism Bipolar COPD YOLANDA Lupus Fibromyalgia Migraines Continue home meds DVT prophylaxis: Lovenox Diagnosis/Problems Diagnosis/Problems (1) S/P total knee arthroplasty Status: Acute Qualifiers: Laterality: right Qualified Codes: Z96.651 - Presence of right artificial knee joint (2) Osteoarthritis of right knee Status: Acute Qualifiers: Osteoarthritis type: primary Qualified Codes: M17.11 - Unilateral primary osteoarthritis, right knee (3) T2DM (type 2 diabetes mellitus) Status: Chronic (4) Obesity Status: Chronic KRISTINE DICKEY MD Mar 17, 2022 17:49
[2022-03-17] MEDS: LORATADINE (CLARITIN) 10 MG TAB PO SCH (20:31)
[2022-03-18 00:07] VITALS: BP 112/53
[2022-03-18] MEDS: NS IV 1000 ML 1,000 ML IV SCH ×2 (00:59→03:09)
[2022-03-18 03:56] VITALS: BP 124/59
[2022-03-18] MEDS: LEVOTHYROXINE 150 MCG (LEVOTHROID) TAB PO SCH (06:14)
[2022-03-18] MEDS: oxyCODONE/APAP 5/325MG (PERCOCET 5) TABLET PO PRN ×5 (06:15→14:54)
[2022-03-18] MEDS: inSUlin ASPART (NovoLOG) 1 UNIT/0.01 ML (CHARGE PER UNIT) SC SCH ×2 (06:15→10:38)
[2022-03-18] MEDS: MULTIVIT W/MINERALS TAB (THERAGRAN M) PO SCH (06:20)
--- NOTE | 2022-03-18 06:53 | Progress Note ---
Standard Progress Note Progress Notes/Assess & Plan Date Seen by a Provider: Mar 18, 2022 Time Seen by a Provider: 06:52 Progress/Assessment & Plan post op check no complaints radiographs--HW well positioned without fracture RLE--intact DF and PF of toes and ankle. Intact sensation to light touch throughout 2 plus DP pulse with brisk cap refill s/p RTKA mobilize when able Final Diagnosis no complaints Vital Signs Date Time Temp Pulse Resp B/P (MAP) Pulse Ox O2 Delivery O2 Flow Rate FiO2 03/18/22 05:51 18 03/18/22 03:56 37.1 86 20 124/59 (80) 97 Nasal Cannula 1.00 03/18/22 00:07 37.4 88 20 112/53 (72) 93 Nasal Cannula 1.00 03/17/22 20:00 Room Air 03/17/22 19:34 35.9 85 18 109/59 (76) 95 Nasal Cannula 1.00 03/17/22 18:00 18 03/17/22 15:35 37.0 91 22 111/69 (83) 94 Nasal Cannula 1.00 03/17/22 11:34 37.3 90 19 135/63 (87) 96 Nasal Cannula 1.00 03/17/22 08:00 Nasal Cannula 2.00 03/17/22 07:57 37.0 101 19 120/56 (77) 94 Nasal Cannula 3.00 I & O 03/18/22 07:00 Intake Total 2980 ml Output Total 4290 ml Balance -1310 ml Laboratory Tests Test 03/17/22 10:31 03/17/22 15:39 03/17/22 20:30 03/18/22 05:20 Range/Units Glucometer 120 H 153 H 131 H 117 H 70-110 MG/DL RLE--incision clean and dry. No calf tenderness. Neg Ange's s/p RTKA DC after PT today if doing well RACHAEL GUADARRAMA MD Mar 18, 2022 06:53
[2022-03-18] MEDS ORDERED: morphine INJ 4 MG/ML 1 ML (VIAL/SYRINGE) IVP PRN (07:00)
[2022-03-18 07:17] LABS: BASOPHILS % (AUTO) 0 % (0-10); EOSINOPHILS # (AUTO) 0.1 10^3/uL (0.0-0.3); EOSINOPHILS % (AUTO) 2 % (0-10); HEMATOCRIT 31 % (35-52); HEMOGLOBIN 9.8 g/dL (11.5-16.0); LYMPHOCYTES # (AUTO) 2.4 10^3/uL (1.0-4.0); LYMPHOCYTES % (AUTO) 29 % (12-44); MEAN CORPUSCULAR HEMOGLOBIN 30 pg (25-34); MEAN CORPUSCULAR HGB CONC 32 g/dL (32-36); MEAN CORPUSCULAR VOLUME 95 fL (80-99); MEAN PLATELET VOLUME 10.7 fL (9.0-12.2); MONOCYTES # (AUTO) 0.8 10^3/uL (0.0-1.0); MONOCYTES % (AUTO) 10 % (0-12); NEUTROPHILS % (AUTO) 59 % (42-75); PLATELET COUNT 188 10^3/uL (130-400); WHITE BLOOD COUNT 8.4 10^3/uL (4.3-11.0)
[2022-03-18 08:32] VITALS: BP 131/64
[2022-03-18] MEDS: DOCUSATE SODIUM 100 MG (COLACE) CAP PO SCH (08:41)
[2022-03-18] MEDS: ENOXAPARIN INJECTION 30 MG/0.3 ML SYR SC SCH (08:42)
[2022-03-18] MEDS: PREGABALIN 25 MG (LYRICA) CAPSULE PO SCH ×2 (08:42→13:07)
[2022-03-18] MEDS: MAGNESIUM OXIDE (MAG-OX)400 MG TAB PO SCH ×2 (08:42→13:07)
[2022-03-18] MEDS: SENNA W/DOCUSATE (SENOKOT S) TABLET PO SCH (08:42)
[2022-03-18] MEDS: ASPIRIN E.C. 81 MG (ECOTRIN) TAB PO SCH (08:42)
[2022-03-18] MEDS: ESTRADIOL 1 MG TAB (ESTRACE) PO SCH (08:42)
[2022-03-18] MEDS: FLUTICASONE NASAL SPRAY (FLONASE) 16 GM BTL NS SCH (08:43)
[2022-03-18] MEDS: SPIRONOLACTONE 25 MG (ALDACTONE) TAB PO SCH (08:43)
[2022-03-18] MEDS: MONTELUKAST 10 MG (SINGULAIR) TAB PO SCH (08:43)
--- NOTE | 2022-03-18 10:15 | Physical Therapy Daily Note ---
PT Daily Note-Current Subjective Patient agrees to PT. Pain meds issued prior to PT. Pain Numeric Pain Scale: 8 Location: Right Location Body Site: Knee Pain Description: Acute Mental Status Patient Orientation: Normal For Age Transfers SCALE: Activities may be completed with or without assistive devices. 8-Hqvtsgrmzn-bwybynn completes the activity by him/herself with no assistance from a helper. 5-Set-up or Clean-up Assistance-helper sets up or cleans up; patient completes activity. [place] assists only prior to or following the activity. 4-Supervision or Touching Assistance-helper provides verbal cues and/or touching/steadying and/or contact guard assistance as patient completes activity. Assistance may be provided throughout the activity or intermittently. 3-Partial/Moderate Assistance-helper does LESS THAN HALF the effort. [place] lifts, holds or supports trunk or limbs, but provides less than half the effort. 2-Substantial/Maximal Assistance-helper does MORE THAN HALF the effort. [place] lifts or holds trunk or limbs and provides more than half the effort. 9-Wizetnphf-aacbuy does ALL the effort. Patient does none of the effort to complete the activity. Or, the assistance of 2 or more helpers is required for the patient to complete the activity. If activity was not attempted, code reason: 7-Patient Refused. 9-Not Applicable-not attempted and the patient did not perform the activity before the current illness, exacerbation or injury. 10-Not Attempted due to Environmental Limitations-(lack of equipment, weather restraints, etc.). 88-Not Attempted due to Medical Conditions or Safety Concerns. Lying to Sitting/Side of Bed(Q: 6 Sit to Stand (QC): 4 Chair/Ujb-zs-Eqzfo Xfer(QC): 4 Weight Bearing Right Lower Extremity: Right Weight Bearing/Tolerated Gait Training Distance: 150' x 2 Walk 10 feet (QC): 4 Walk 50 ft with 2 Turns(QC): 4 Walk 150 ft (QC): 4 Gait Assistive Device: FWW slow, antalgic, step to gait sequence Stair Training Stair Training: Handrails/: 2 handrails #of Steps: 4 1 Step (curb) (QC): 4 4 Steps (QC): 4 Stairs: Pattern: Step to Exercises Supine Ex: Ankle pumps, Quad Set, Glut sets, Heel Slides, Straight leg raise Supine Reps: 15 Seated Therapy Exercises: Long arc quads Seated Reps: 15 Assessment Patient improving with right knee ROM with much encouragement. Patient performed stairs with SBA for safety. Patient instructed to perform HEP issued by physician at preop. Patient voices understanding. Plan dismissal in a.m. PT Reproduction Production Manager Goals Assisted Goals PT Reproduction Production Manager Goals Time Frame: Mar 23, 2022 Roll Left & Right (QC): 6 Sit to Lying (QC): 6 Lying-Sitting on Side/Bed(QC): 6 Sit to Stand (QC): 6 Chair/Dqs-da-Rvenq Xfer(QC): 6 Walk 10 feet (QC): 6 Walk 50ft with 2 Turns (QC): 6 Walk 150 ft (QC): 6 PT Plan Treatment/Plan Treatment Plan: Continue Plan of Care Treatment Plan: Bed Mobility, Education, Functional Activity Tete, Functional Strength, Gait, Safety, Therapeutic Exercise, Transfers Treatment Duration: Mar 23, 2022 Frequency: 11 times per week Estimated Hrs Per Day: .25 hour per day Patient and/or Family Agrees t: Yes Time/GCodes Time In: 740 Time Out: 820 Total Billed Treatment Time: 40 Total Billed Treatment 1 visit EX 15 min GT 15 min FA 10 min MORIS CHIN PT Mar 18, 2022 10:15
--- NOTE | 2022-03-18 10:40 | DISCHARGE SUMMARY ---
DATE OF SERVICE: DIAGNOSES: 1. Right knee primary osteoarthritis. 2. Lupus. 3. Fibromyalgia. 4. Migraines. 5. Bipolar disorder. 6. Anxiety disorder. 7. Chronic obstructive pulmonary disease. 8. Diabetes. 9. Hyperlipidemia. 10. Hypertension. 11. Hypothyroidism. 12. Sleep apnea. PROCEDURE: Right total knee arthroplasty. SUMMARY: The patient is a 56-year-old female who underwent a right total knee arthroplasty on the day of admission. Postoperatively, she progressed well. At the time of discharge, her wound was clean and dry. She had no calf tenderness. Negative Homans sign. She was tolerating diet well and tolerating pain with oral pain medication. CONDITION AT DISCHARGE: Good. DISCHARGE DIET: Regular. FOLLOWUP: Followup is in three weeks. ACTIVITIES: Weightbearing as tolerated with a walker. DISCHARGE MEDICATIONS: Home medications, one aspirin per day for 30 days and Percocet as needed for pain. Job ID: [id number] DocumentID: [id number] Dictated Date: 03/17/2022 18:02:05 Filler Wiper Date: 03/18/2022 10:40:09 Dictated By: RACHAEL GUADARRAMA MD
[2022-03-18 11:29] VITALS: BP 118/61
--- NOTE | 2022-03-18 14:00 | Physical Therapy Daily Note ---
PT Daily Note-Current Subjective Patient agrees to PT. Dons shoes with set up Pain Numeric Pain Scale: 5-Moderate Pain Location: Right Location Body Site: Knee Pain Description: Acute Mental Status Patient Orientation: Normal For Age Transfers SCALE: Activities may be completed with or without assistive devices. 7-Lrnwurnfez-sdtglrm completes the activity by him/herself with no assistance from a helper. 5-Set-up or Clean-up Assistance-helper sets up or cleans up; patient completes activity. [place] assists only prior to or following the activity. 4-Supervision or Touching Assistance-helper provides verbal cues and/or touching/steadying and/or contact guard assistance as patient completes activity. Assistance may be provided throughout the activity or intermittently. 3-Partial/Moderate Assistance-helper does LESS THAN HALF the effort. [place] lifts, holds or supports trunk or limbs, but provides less than half the effort. 2-Substantial/Maximal Assistance-helper does MORE THAN HALF the effort. [place] lifts or holds trunk or limbs and provides more than half the effort. 0-Maumleqqn-cqmolz does ALL the effort. Patient does none of the effort to complete the activity. Or, the assistance of 2 or more helpers is required for the patient to complete the activity. If activity was not attempted, code reason: 7-Patient Refused. 9-Not Applicable-not attempted and the patient did not perform the activity before the current illness, exacerbation or injury. 10-Not Attempted due to Environmental Limitations-(lack of equipment, weather restraints, etc.). 88-Not Attempted due to Medical Conditions or Safety Concerns. Sit to Lying (QC): 3 Lying to Sitting/Side of Bed(Q: 4 Sit to Stand (QC): 4 Weight Bearing Right Lower Extremity: Right Weight Bearing/Tolerated Gait Training Distance: 150' Walk 10 feet (QC): 4 Walk 50 ft with 2 Turns(QC): 4 Walk 150 ft (QC): 4 Gait Assistive Device: FWW very slow and antalgic Exercises Supine Ex: LE Protocol Supine Reps: 12 Assessment review of HEP for patient to perform at home independently PRN. Patient continues to have difficulty with right quad contraction with SLR and ambulates with right knee in flexed position ~20 degrees. PT Care Home Goals Care Home Goals PT Care Home Goals Time Frame: Mar 23, 2022 Roll Left & Right (QC): 6 Sit to Lying (QC): 6 Lying-Sitting on Side/Bed(QC): 6 Sit to Stand (QC): 6 Chair/Ydj-tp-Dkqjl Xfer(QC): 6 Walk 10 feet (QC): 6 Walk 50ft with 2 Turns (QC): 6 Walk 150 ft (QC): 6 PT Plan Treatment/Plan Treatment Plan: Discontinue PT Treatment Plan: Bed Mobility, Education, Functional Activity Tete, Functional Strength, Gait, Safety, Therapeutic Exercise, Transfers Treatment Duration: Mar 23, 2022 Frequency: 11 times per week Estimated Hrs Per Day: .25 hour per day Patient and/or Family Agrees t: Yes Time/GCodes Time In: 1315 Time Out: 1332 Total Billed Treatment Time: 17 Total Billed Treatment 1 visit FA 17 min MORIS CHIN PT Mar 18, 2022 14:00
[2022-03-18 14:58] VITALS: BP 118/61
--- NOTE | 2022-03-18 20:33 | Progress Note - Hospitalist ---
Subjective HPI/CC On Admission Date Seen by Provider: Mar 18, 2022 Time Seen by Provider: 10:15 Ange Anderson is a 56 year old female with PMH HTN, HLD, GERD, T2DM, hypothyroidism,, bipolar disorder, COPD, YOLANDA, lupus, fibromyalgia, migraines, obesity, osteoarthritis, who presented for a planned right total knee arthroplasty. The hospitalist service has been consulted for medical comanagement. She was seen postoperatively. She is doing well. She has worked with therapy. She is having some pain but it is well controlled. She denies nausea and vomiting. She denies fevers and chills. She is not having any chest pain or shortness of breath. Subjective/Events-last exam She is feeling better. She has been up with therapy. She has not had any fevers. Objective Exam Vital Signs Vital Signs Date Time Temp Pulse Resp B/P (MAP) Pulse Ox O2 Delivery O2 Flow Rate FiO2 03/18/22 14:58 37.1 88 19 118/61 94 Room Air 03/18/22 09:22 1.00 Capillary Refill : Less Than 3 Seconds General Appearance: No Apparent Distress, Obese Respiratory: Lungs Clear, No Respiratory Distress Cardiovascular: Regular Rate, Rhythm, No Murmur Gastrointestinal: Normal Bowel Sounds, Soft Neurologic/Psychiatric: Alert, Normal Mood/Affect Results/Procedures Lab Laboratory Tests 03/18/22 07:03 Patient resulted labs reviewed. Imaging: Reviewed Imaging Report Assessment/Plan Assessment and Plan Assess & Plan/Chief Complaint Right total knee arthroplasty Right knee osteoarthritis [place] primary Pain regimen Bowel regimen Incentive spirometry PT/OT Planning for discharge home today T2DM Sliding scale insulin HTN HLD GERD Hypothyroidism Bipolar COPD YOLANDA Lupus Fibromyalgia Migraines Continue home meds DVT prophylaxis: Lovenox Fever, resolved Diagnosis/Problems Diagnosis/Problems (1) S/P total knee arthroplasty Status: Acute Qualifiers: Laterality: right Qualified Codes: Z96.651 - Presence of right artificial knee joint (2) Osteoarthritis of right knee Status: Acute Qualifiers: Osteoarthritis type: primary Qualified Codes: M17.11 - Unilateral primary osteoarthritis, right knee (3) T2DM (type 2 diabetes mellitus) Status: Chronic (4) Obesity Status: Chronic KRISTINE DICKEY MD Mar 18, 2022 20:33
== END 2022-03-18 15:00 | disposition home health service (06) | DRG 470 ==
LOC: 4TH 05:51 → SURG 05:52 → 4TH 11:52
PROVIDERS: ADMIT Orthopaedic Surgery; ATTEND Orthopaedic Surgery
PROC: 0SRC0J9 Replacement of Right Knee Joint with Synthetic Substitute, Cemented, Open Approach (ICD-10-PCS; principal; 2022-03-16 07:28)
DX: M17.11 Unilateral primary osteoarthritis, right knee (principal); M32.9 Systemic lupus erythematosus, unspecified; M79.7 Fibromyalgia; G43.909 Migraine, unspecified, not intractable, without status migrainosus; F31.9 Bipolar disorder, unspecified; F41.9 Anxiety disorder, unspecified; J44.9 Chronic obstructive pulmonary disease, unspecified; E11.9 Type 2 diabetes mellitus without complications; E78.5 Hyperlipidemia, unspecified; I10 Essential (primary) hypertension; E03.9 Hypothyroidism, unspecified; Z96.652 Presence of left artificial knee joint; Z98.84 Bariatric surgery status; G47.33 Obstructive sleep apnea (adult) (pediatric); R50.9 Fever, unspecified
CPT/HCPCS: 36415; 73560; 80048; 82947; 85014; 85018; 85025; 86850; 86900; 86901; 94664; 94760

== ENCOUNTER → 2022-06-24 | Outpatient (CLI) | payer MEDICARE, MEDICAID ==
[~2022-06-24] MED LIST changes: +CALC1CAP5 PO; +CHOL500050 PO; +CIME-48 PO; +TIZA-186 PO
[2022-06-24 11:04] LABS: BASOPHILS % (AUTO) 1 % (0-10); EOSINOPHILS # (AUTO) 0.5 10^3/uL (0.0-0.3); EOSINOPHILS % (AUTO) 5 % (0-10); HEMATOCRIT 43 % (35-52); HEMOGLOBIN 13.8 g/dL (11.5-16.0); LYMPHOCYTES # (AUTO) 3.3 10^3/uL (1.0-4.0); LYMPHOCYTES % (AUTO) 38 % (12-44); MEAN CORPUSCULAR HEMOGLOBIN 29 pg (25-34); MEAN CORPUSCULAR HGB CONC 32 g/dL (32-36); MEAN CORPUSCULAR VOLUME 89 fL (80-99); MEAN PLATELET VOLUME 10.8 fL (9.0-12.2); MONOCYTES # (AUTO) 0.5 10^3/uL (0.0-1.0); MONOCYTES % (AUTO) 6 % (0-12); NEUTROPHILS # (AUTO) 4.3 10^3/uL (1.8-7.8); NEUTROPHILS % (AUTO) 50 % (42-75); PLATELET COUNT 336 10^3/uL (130-400); WHITE BLOOD COUNT 8.6 10^3/uL (4.3-11.0)
[2022-06-24 11:22] LABS: ALBUMIN 3.7 GM/DL (3.2-4.5); BILIRUBIN,TOTAL 0.4 MG/DL (0.1-1.0); CALCIUM 9.2 MG/DL (8.5-10.1); CREATININE SERUM 0.79 MG/DL (0.60-1.30); MAGNESIUM 1.8 MG/DL (1.6-2.4); POTASSIUM 5.1 MMOL/L (3.6-5.0); TOTAL PROTEIN 6.9 GM/DL (6.4-8.2)
[2022-06-24 11:41] LABS: ERYTHROCYTE SEDIMENTATION RATE 20 MM/HR (0-30)
[2022-06-24 11:44] LABS: FREE T4 (FREE THYROXINE) 1.13 NG/DL (0.70-1.48)
== END ==
LOC: LAB 10:35
PROVIDERS: ATTEND Nurse Practitioner Primary Care
DX: Z79.899 Other long term (current) drug therapy (principal); E11.40 Type 2 diabetes mellitus with diabetic neuropathy, unspecified; E03.9 Hypothyroidism, unspecified; E55.9 Vitamin D deficiency, unspecified
CPT/HCPCS: 36415; 80053; 82306; 82607; 83036; 83735; 84439; 84443; 85025; 85652

== ENCOUNTER → 2022-12-27 | Outpatient (CLI) | payer MEDICARE, MEDICAID | LOC: LAB 10:40 | PROVIDERS: ATTEND Nurse Practitioner | DX: K91.2 Postsurgical malabsorption, not elsewhere classified (principal); Z90.3 Acquired absence of stomach [part of] | CPT/HCPCS: 36415; 82728; 83540; 83550; 83735; 83970; 84425; 84630 ==

== ENCOUNTER 2022-12-30 21:05 | Emergency (ER) | payer OTHER, MEDICARE, MEDICAID ==
[~2022-12-30] VITALS: Ht 167.7 cm; Wt 87.0 kg
[2022-12-30] MEDS ORDERED: fentaNYL INJ 100 MCG/2 ML AMP IVP STA (21:13)
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
[2022-12-30] MEDS ORDERED: HYDROmorphone 2 MG/ML VIAL (DILAUDID) IV ONE (22:45)
[2022-12-30 22:56] LABS: BASOPHILS # (AUTO) 0.1 10^3/uL (0.0-0.1); BASOPHILS % (AUTO) 1 % (0-10); EOSINOPHILS # (AUTO) 0.2 10^3/uL (0.0-0.3); EOSINOPHILS % (AUTO) 2 % (0-10); HEMATOCRIT 44 % (35-52); HEMOGLOBIN 14.4 g/dL (11.5-16.0); LYMPHOCYTES # (AUTO) 3.4 10^3/uL (1.0-4.0); LYMPHOCYTES % (AUTO) 39 % (12-44); MEAN CORPUSCULAR HEMOGLOBIN 30 pg (25-34); MEAN CORPUSCULAR HGB CONC 33 g/dL (32-36); MEAN CORPUSCULAR VOLUME 91 fL (80-99); MONOCYTES # (AUTO) 0.5 10^3/uL (0.0-1.0); MONOCYTES % (AUTO) 5 % (0-12); NEUTROPHILS # (AUTO) 4.4 10^3/uL (1.8-7.8); NEUTROPHILS % (AUTO) 51 % (42-75); PLATELET COUNT 290 10^3/uL (130-400); WHITE BLOOD COUNT 8.6 10^3/uL (4.3-11.0)
[2022-12-30 23:04] LABS: ALBUMIN 3.8 GM/DL (3.2-4.5)
[2022-12-30 23:05] LABS: CALCIUM 9.1 MG/DL (8.5-10.1)
[2022-12-30] MEDS ORDERED: NS IV 1000 ML 1,000 ML IV STA (23:05)
[2022-12-30 23:07] LABS: PROTHROMBIN TIME PATIENT 13.6 SEC (12.2-14.7)
[2022-12-30 23:08] LABS: BILIRUBIN,TOTAL 0.4 MG/DL (0.1-1.0)
[2022-12-30 23:10] LABS: CREATININE SERUM 0.84 MG/DL (0.60-1.30)
[2022-12-31 00:08] VITALS: BP 108/69
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
== END 2022-12-31 00:08 | disposition short-term general hospital (02) ==
LOC: EDUNIT# 21:05 → ER 21:07
DX: S22.088A Other fracture of T11-T12 vertebra, initial encounter for closed fracture (principal); S32.019A Unspecified fracture of first lumbar vertebra, initial encounter for closed fracture; S32.029A Unspecified fracture of second lumbar vertebra, initial encounter for closed fracture; Z88.5 Allergy status to narcotic agent; Z28.310 Unvaccinated for COVID-19; V48.5XXA Car driver injured in noncollision transport accident in traffic accident, initial encounter; Y92.410 Unspecified street and highway as the place of occurrence of the external cause
CPT/HCPCS: 36415; 70450; 71045; 72125; 72128; 72131; 72192; 80053; 85025; 85610; 85730